=== PATIENT | female | born 2000 | race Two or more races ===

== ENCOUNTER 2024-10-16 19:13 | Emergency (ER) | payer OTHER ==
[~2024-10-16] VITALS: Ht 160 cm; Wt 83.0 kg
[2024-10-16] MEDS ORDERED: PRENATA CHEWAB1 EACH (19:24)
[2024-10-16 21:49] LABS: BASO % 0.3 % (0.1-1.2); EOS # 0.09 (0.04-0.54); EOS % 0.8 % (0.7-7.0); HEMATOCRIT 36.9 % (34.1-44.9); HEMOGLOBIN 13.1 g/dL (11.2-15.7); LYMPH % 25.4 % (19.3-53.1); MONO # 0.98 (0.24-0.82); MONO % 8.9 % (4.7-12.5); NEUT # 7.06 (1.56-6.13); NEUT % 63.9 % (34.0-71.1); PLATELET COUNT 194 K/uL (163-369); RED BLOOD COUNT 4.37 M/uL (3.93-5.22); RED CELL DISTRIBUTION WIDTH 12.7 % (11.6-14.4)
[2024-10-16 22:02] LABS: ALBUMIN 3.6 gm/dL (3.4-5.0); BILIRUBIN TOTAL 0.33 mg/dL (0.3-1.2); CALCIUM 9.5 mg/dL (8.5-10.1); CREATININE SERUM 0.51 mg/dL (0.55-1.02); GFR 150.79; GLOBULINA 3.9 G/DL (2.4-3.5); POTASSIUM 3.91 mEq/L (3.5-5.1); TOTAL PROTEIN 7.5 gm/dL (6.4-8.2)
[2024-10-16 22:20] LABS: COVID-19 AG NEGATIVE (NEGATIVE)
[2024-10-16 22:23] LABS: PH,URINE 6.5 (5.0-8.0); URINE APPEARANCE Cloudy; URINE BILIRRUBIN Negative (NEGATIVE); URINE BLOOD Negative; URINE COLOR Yellow; URINE GLUCOSE Negative (NEGATIVE); URINE KETONE Negative (NEGATIVE); URINE LEUKOCYTE Negative; URINE NITRATE Negative; URINE PROTEIN Negative (NEGATIVE); URINE UROBILINOGEN 0.2 E.U./dl
[2024-10-16 22:24] LABS: URINE EPITHELIAL CELLS 21.6 uL (0.0-38.8); URINE WBC 7.2 uL (0.0-23.2)
[2024-10-16 22:29] LABS: INFLUENZA A AG NEGATIVE (NEGATIVE); INFLUENZA B AG NEGATIVE (NEGATIVE)
[2024-10-16] MEDS ORDERED: ACETAMINOPHEN 500 MG GEL..CAP PO ONE ×2 (23:45→23:53)
[2024-10-16] MEDS ORDERED: ACETAMINOPHEN500 M1 PO (23:54)
== END 2024-10-17 00:09 | disposition home or self-care (01) ==
LOC: ER 19:13
PROVIDERS: Preventive Medicine Public Health & General Preventive Medicine
DX: O26.892 Other specified pregnancy related conditions, second trimester (principal); G44.209 Tension-type headache, unspecified, not intractable; Z3A.17 17 weeks gestation of pregnancy; Z20.822 Contact with and (suspected) exposure to COVID-19

== ENCOUNTER → 2024-11-15 | Emergency (ER) | payer OTHER ==
[~2024-11-15] VITALS: Ht 160 cm; Wt 83.0 kg
[~2024-11-15] MED LIST: ACETAMINOPHEN500 M1 PO; CEPHALEXIN500 M1 PO; PRENATA CHEWAB1 EACH
== END | disposition left against medical advice (07) ==
LOC: ER 21:54
DX: Z53.21 Procedure and treatment not carried out due to patient leaving prior to being seen by health care provider (principal)

== ENCOUNTER 2024-11-16 21:17 | Outpatient (CLI) | payer OTHER ==
[~2024-11-16] VITALS: Ht 160 cm; Wt 83.0 kg
[2024-11-16 20:55] VITALS: BP 126/76
[~2024-11-16 21:17] MED LIST changes: -CEPHALEXIN500 M1 PO
[2024-11-16] MEDS ORDERED: CEFAZOLIN SODIUM 1,000 MG VIAL IV SCH (21:29)
[2024-11-16] MEDS ORDERED: CEFAZOLIN SODIUM 1,000 MG VIAL IV ONE (21:30)
[2024-11-16] MEDS ORDERED: RINGERS SOLUTION,LACTATED 1,000 ML IV SCH (21:30)
[2024-11-16 21:51] LABS: BASO % 0.2 % (0.1-1.2); EOS # 0.10 (0.04-0.54); EOS % 1.1 % (0.7-7.0); LYMPH # 2.46 (1.18-3.74); LYMPH % 25.9 % (19.3-53.1); MEAN PLATELET VOLUME 11.10 fl (9.4-12.4); MONO # 1.00 (0.24-0.82); MONO % 10.5 % (4.7-12.5); NEUT # 5.83 (1.56-6.13); NEUT % 61.6 % (34.0-71.1); RED CELL DISTRIBUTION WIDTH 12.7 % (11.6-14.4)
[2024-11-16 21:54] LABS: URINE APPEARANCE Clear; URINE BILIRRUBIN Negative (NEGATIVE); URINE BLOOD Negative; URINE COLOR Yellow; URINE GLUCOSE Negative (NEGATIVE); URINE KETONE Negative (NEGATIVE); URINE LEUKOCYTE Small; URINE NITRATE Negative; URINE PROTEIN Negative (NEGATIVE); URINE UROBILINOGEN 0.2 E.U./dl
[2024-11-16 21:57] LABS: URINE BACTERIA 625.0 uL (0.0-1933); URINE EPITHELIAL CELLS 22.4 uL (0.0-38.8); URINE RBC 6.1 uL (0.0-20.8); URINE WBC 18.6 uL (0.0-23.2)
[2024-11-16 22:11] LABS: URINE CAST 0.14 uL (0.0-1.40)
[2024-11-16 23:00] VITALS: BP 108/59; O2SAT 98
[2024-11-17 04:00] VITALS: BP 126/52
[2024-11-17] MEDS ORDERED: CEPHALEXIN500 M1 PO (07:23)
[2024-11-17 07:26] VITALS: BP 130/60
[2024-11-17 08:00] VITALS: BP 130/60
== END 2024-11-17 08:49 | disposition home or self-care (01) ==
LOC: OBS/DEL 21:17
PROVIDERS: ATTEND Specialist
DX: O26.892 Other specified pregnancy related conditions, second trimester (principal); Z3A.21 21 weeks gestation of pregnancy

== ENCOUNTER 2025-01-03 20:37 | Emergency (ER) | payer OTHER ==
[~2025-01-03] VITALS: Ht 160 cm; Wt 84.8 kg
[~2025-01-03 20:37] MED LIST changes: +CEPHALEXIN500 M1 PO
[2025-01-03 22:23] LABS: COVID-19 AG NEGATIVE (NEGATIVE)
[2025-01-03] MEDS ORDERED: ACETAMINOPHEN 500 MG GEL..CAP PO ONE (22:28)
[2025-01-03 23:22] VITALS: BP 108/79; O2SAT 99
== END 2025-01-03 23:25 | disposition home or self-care (01) ==
LOC: ER 20:37
PROVIDERS: General Practice
DX: O99.513 Diseases of the respiratory system complicating pregnancy, third trimester (principal); J06.9 Acute upper respiratory infection, unspecified; Z3A.28 28 weeks gestation of pregnancy; Z20.822 Contact with and (suspected) exposure to COVID-19

== ENCOUNTER 2025-03-15 13:15 | Inpatient (IN) | payer OTHER ==
[~2025-03-15] VITALS: Ht 160 cm; Wt 90.7 kg
[2025-03-25] VITALS (9 sets, daily range): BP systolic 113–142; BP diastolic 56–80
[2025-03-25] MEDS ORDERED: RINGERS SOLUTION,LACTATED 1,000 ML IV SCH (10:30)
[2025-03-25] MEDS ORDERED: MORPHINE SULFATE 4 MG/ML CARTRIDGE IV ONE (10:45)
[2025-03-25] MEDS ORDERED: CHLORHEXIDINE GLUCONATE 120 ML BOTTLE TOP ONE (13:30)
[2025-03-25] MEDS ORDERED: LIDOCAINE HCL 1% 10ML VIAL IJ ONE ×2 (13:30)
[2025-03-25] MEDS ORDERED: OXYTOCIN 1,000 ML IV SCH (13:30)
[2025-03-25] MEDS ORDERED: ERYTHROMYCIN BASE OPHT 1GM EACH TUBE OP ONE (13:30)
[2025-03-25 18:01] LABS: BASO % 0.2 % (0.1-1.2); EOS # 0.00 (0.04-0.54); EOS % 0.0 % (0.7-7.0); LYMPH # 1.13 (1.18-3.74); LYMPH % 6.1 % (19.3-53.1); MEAN PLATELET VOLUME 12.00 fl (9.4-12.4); MONO # 1.32 (0.24-0.82); MONO % 7.1 % (4.7-12.5); NEUT # 16.07 (1.56-6.13); NEUT % 86.0 % (34.0-71.1); RED CELL DISTRIBUTION WIDTH 12.4 % (11.6-14.4)
[2025-03-26 00:13] VITALS: BP 110/65
[2025-03-26 08:48] VITALS: BP 115/70
[2025-03-26] MEDS ORDERED: PNV,CALCIUM 72/IRON/FOLIC ACID 1 TAB TABLET PO SCH (09:00)
[2025-03-26 16:36] VITALS: BP 116/64
[2025-03-27] VITALS: BP 113/72
[2025-03-27 08:46] VITALS: BP 114/60
== END 2025-03-27 12:16 | disposition home or self-care (01) | DRG 807 ==
LOC: LDR 03-25 09:54 → OB/GYN 03-25 09:54
PROVIDERS: Obstetrics & Gynecology; ADMIT Specialist; ATTEND Specialist
PROC: 10E0XZZ Delivery of Products of Conception, External Approach (ICD-10-PCS; principal; 2025-03-25)
PROC: 0KQM0ZZ Repair Perineum Muscle, Open Approach (ICD-10-PCS; 2025-03-25)
PROC: 4A1HXCZ Monitoring of Products of Conception, Cardiac Rate, External Approach (ICD-10-PCS; 2025-03-25)
DX: O70.1 Second degree perineal laceration during delivery (principal); Z37.0 Single live birth; Z3A.39 39 weeks gestation of pregnancy

== ENCOUNTER 2025-03-25 05:51 | Outpatient (CLI) | payer OTHER ==
[2025-03-25 04:51] VITALS: BP 134/76
[2025-03-25] MEDS ORDERED: RINGERS SOLUTION,LACTATED 1,000 ML IV SCH (06:15)
[2025-03-25 07:34] VITALS: BP 133/70
[2025-03-25 07:52] LABS: URINE APPEARANCE Clear; URINE BILIRRUBIN Negative (NEGATIVE); URINE BLOOD Negative; URINE COLOR Yellow; URINE GLUCOSE Negative (NEGATIVE); URINE KETONE Negative (NEGATIVE); URINE LEUKOCYTE Negative; URINE NITRATE Negative; URINE PROTEIN Negative (NEGATIVE); URINE UROBILINOGEN 0.2 E.U./dl
[2025-03-25 07:53] LABS: URINE BACTERIA 257.9 uL (0.0-1933); URINE EPITHELIAL CELLS 9.5 uL (0.0-38.8); URINE RBC 2.4 uL (0.0-20.8); URINE WBC 6.7 uL (0.0-23.2)
[2025-03-25 08:01] LABS: BASO % 0.3 % (0.1-1.2); EOS # 0.05 (0.04-0.54); EOS % 0.5 % (0.7-7.0); LYMPH # 2.13 (1.18-3.74); LYMPH % 20.9 % (19.3-53.1); MEAN PLATELET VOLUME 12.10 fl (9.4-12.4); MONO # 1.05 (0.24-0.82); MONO % 10.3 % (4.7-12.5); NEUT # 6.87 (1.56-6.13); NEUT % 67.2 % (34.0-71.1); RED CELL DISTRIBUTION WIDTH 12.3 % (11.6-14.4)
[2025-03-25 08:03] LABS: INR 0.96
[2025-03-25 09:15] LABS: URINE CAST 0.14 uL (0.0-1.40)
== END 2025-03-25 11:06 | disposition still patient (30) ==
LOC: OBS/DEL 05:51
PROVIDERS: Obstetrics & Gynecology; ATTEND Specialist
DX: O26.893 Other specified pregnancy related conditions, third trimester (principal)